=== PATIENT | female | born 1930 | race Caucasian/White ===

== ENCOUNTER → 2016-04-26 | Outpatient (REF) | payer MEDICARE ==
[~2016-04-26] MED LIST: /PRAV20TA PO; ATOR1TAB19 PO; BUTATAB16 PO; CAL-TAB4 PO; CALC25TA PO; CALC600T21 PO; CIPR-250 PO; CIPR500T89 PO; COLA100C PO; D 202000 PO; FISH1000 PO; FLAG500T PO; FLEC1.3D TD; FLUC10TA PO; FOSA40TA PO; FOSA70TA PO; GABA-283 PO; IMIT50TA PO; LIDO5TD TD; MICR10CA PO; MICROBID PO; MILKSUS PO; MOBI7.5T10 PO; MULT1TAB10 PO; MYLI40DR PO; NON-325T5 PO; NORC5TAB PO; OMEP20TA PO; ONDA1TAB15 SL; OSTETAB7 PO; OXYC1SOL PO; PROT1TAB2 PO; STOO100C PO; TYLE325T5 PO; VERA120T2 PO; VERA200C PO; VERA240T16 PO; VITA200016 PO; ZOFR4SOL; ZOFR4TAB3 SL
[2016-04-26 12:51] LABS: MEAN CORPUSCULAR HEMOGLOBIN 30.3 pg (27.0-33.0); MEAN CORPUSCULAR HGB CONC 32.4 g/dl (32.0-36.5); MEAN CORPUSCULAR VOLUME 93.5 fl (80.0-96.0); RED CELL DISTRIBUTION WIDTH 12.9 % (11.5-14.5); WHITE BLOOD COUNT 6.3 K/mm3 (4.0-10.0)
[2016-04-26 13:19] LABS: ALBUMIN 3.8 GM/DL (3.2-5.2); ALBUMIN/GLOBULIN RATIO 1.15 (1.00-1.93); BILIRUBIN,TOTAL 0.3 MG/DL (0.2-1.0); CALCIUM LEVEL 10.1 MG/DL (8.8-10.2); CREATININE FOR GFR 1.05 MG/DL (0.55-1.02); GLOMERULAR FILTRATION RATE 52.9 (>32); POTASSIUM SERUM 5.1 MEQ/L (3.5-5.1); TOTAL PROTEIN 7.1 GM/DL (6.4-8.2)
== END ==
LOC: M SFHCADAM 10:25
PROVIDERS: ATTEND Physician Assistant
DX: N18.9 Chronic kidney disease, unspecified (principal); R06.09 Other forms of dyspnea

== ENCOUNTER → 2016-05-17 | Outpatient (REF) | payer MEDICARE ==
[2016-05-17 18:53] LABS: CREATININE FOR GFR 1.18 MG/DL (0.55-1.02); GLOMERULAR FILTRATION RATE 46.2 (>32)
== END ==
LOC: M LABDRAW1 17:01
PROVIDERS: ATTEND Physical Medicine & Rehabilitation
DX: M17.0 Bilateral primary osteoarthritis of knee (principal)

== ENCOUNTER → 2016-05-31 | Outpatient (REF) | payer MEDICARE | LOC: M SFHCPLAZ 11:41 | PROVIDERS: ATTEND Dermatology | DX: L98.9 Disorder of the skin and subcutaneous tissue, unspecified (principal); C44.729 Squamous cell carcinoma of skin of left lower limb, including hip ==

== ENCOUNTER → 2016-09-13 | Outpatient (REF) | payer MEDICARE ==
[~2016-09-13] MED LIST changes: -COLA100C PO; +COLA100C3 PO
== END ==
LOC: M SFHCPLAZ 11:37
PROVIDERS: ATTEND Dermatology
DX: D04.12 Carcinoma in situ of skin of left eyelid, including canthus (principal); L57.0 Actinic keratosis